=== PATIENT | female | born 1930 | race Caucasian/White ===

== ENCOUNTER 2017-01-19 10:55 | Emergency (ER) | payer OTHER ==
[2017-01-19 10:56] VITALS: BMI 29.2
[2017-01-19 11:04] VITALS: RESP 18
--- NOTE | 2017-01-19 11:54 | C.PDOC ---
History Of Present Illness Patient is a 86 y/o female, with PMHx of COPD, that presents to the ED for evaluation of right lower back pain that radiates down to right leg for the last 3 days. Notes crampy thigh pain for last 3 days. Patient also complains of upper back pain worse on left side. Additionally, patient reports occasional shortness of breath for the last 2 months. Otherwise, denies any current shortness of breath, chest pain, dizziness, numbness, weakness, nausea, vomiting , abdominal pain, or any other associated symptoms at this time. Time Seen by Provider: 01/19/17 11:19 Chief Complaint (Nursing): Back Pain History Per: Patient History/Exam Limitations: no limitations Onset/Duration Of Symptoms: Days Current Symptoms Are (Timing): Still Present Recent travel outside of the [place]: No Additional History Per: Patient Past Medical History Reviewed: Historical Data, Nursing Documentation, Vital Signs Vital Signs: Last Vital Signs Temp 97.6 F 01/19/17 13:44 Pulse 75 01/19/17 13:44 Resp 18 01/19/17 13:44 BP 120/74 01/19/17 13:44 Pulse Ox 97 01/19/17 14:04 - Medical History PMH: HTN Denies: Chronic Kidney Disease Surgical History: Cholecystectomy Family History: States: Unknown Family Hx - Social History Hx Tobacco Use: No Hx Alcohol Use: No Hx Substance Use: No - Immunization History Hx Tetanus Toxoid Vaccination: No Hx Influenza Vaccination: No Hx Pneumococcal Vaccination: No Review Of Systems Except As Marked, All Systems Reviewed And Found Negative. Constitutional: Negative for: Fever, Chills Cardiovascular: Negative for: Chest Pain, Palpitations Respiratory: Negative for: Cough, Shortness of Breath Gastrointestinal: Negative for: Nausea, Vomiting, Abdominal Pain Genitourinary: Negative for: Dysuria, Incontinence Musculoskeletal: Positive for: Back Pain, Leg Pain. Negative for: Neck Pain Neurological: Negative for: Weakness, Numbness, Headache, Dizziness Physical Exam - Physical Exam Appears: Non-toxic, No Acute Distress Skin: Normal Color, Warm, Dry, No Other (no erythema to lower extremity) Head: Atraumatic, Normacephalic Eye(s): bilateral: Normal Inspection, EOMI Neck: Normal ROM, Supple Chest: Symmetrical, No Tenderness Cardiovascular: Rhythm Regular Respiratory: Normal Breath Sounds, No Rales, No Rhonchi, No Wheezing Gastrointestinal/Abdominal: Soft, No Tenderness Back: No CVA Tenderness, No Vertebral Tenderness, Paraspinal Tenderness ( tenderness to trapezius), Other (kyphosis) Extremity: Normal ROM, No Tenderness (no tenderness to hips or lower extremities ), No Pedal Edema, No Calf Tenderness, Capillary Refill (< 2 sec.), No Deformity , No Swelling Pulses: Left Dorsalis Pedis: Normal, Right Dorsalis Pedis: Normal Neurological/Psych: Oriented x3, Normal Speech, Normal Cognition, Normal Motor, Normal Sensation ED Course And Treatment - Laboratory Results Result Diagrams: 01/19/17 12:23 01/19/17 12:23 Lab Interpretation: No Acute Changes ECG: Interpreted By Me, Viewed By Me ECG Rhythm: Sinus Rhythm ECG Interpretation: No Acute Changes Rate From EC (bpm) O2 Sat by Pulse Oximetry: 97 (on RA) Pulse Ox Interpretation: Normal - Radiology CXR: Interpreted by Me, Viewed By Me CXR Interpretation: Yes: No Acute Disease Progress Note: Labs, EKG, CXR ordered and reviewed. Patient was treated with IV fluids, and Toradol IVP in the ER. On reassessment, patient is resting comfortably, with no acute distress. She has no fever and stable vital signs. She reports improvemet of back pain. Patient is ambulatory in the emergency department with no signs of discomfort. Patient was advised to follow up with their physician in 1-2 days. Medical Decision Making Medical Decision Making: EKg Disposition Counseled Patient/Family Regarding: Need For Followup, Rx Given - Disposition Referrals: [facility] [Outside] [facility] [Outside] Disposition: HOME/ ROUTINE Disposition Time: 13:25 Condition: STABLE Additional Instructions: Vaya a james mdico o la clnica en 2-5 wilde sin falta, para mas evaluacin. [place] los medicamentos jluis indicado. Volver a la levi de emergencia en cualquier momento si los sntomas persisten o empeoran. Prescriptions: Ibuprofen [Motrin] 600 mg PO Q8 #30 tab Instructions: Back Pain (GEN) Print Language: ESTONIAN - POA Present On Arrival: None - Clinical Impression Clinical Impression: Low back pain, Thoracic back pain - PA / BICYCLE RACER / Resident Statement MD/DO has reviewed & agrees with the documentation as recorded. - Scribe Statement The provider has reviewed the documentation as recorded by the Scribe Shaneka Nath All medical record entries made by the Herbertibe were at my direction and personally dictated by me. I have reviewed the chart and agree that the record accurately reflects my personal performance of the history, physical exam, medical decision making, and the department course for this patient. I have also personally directed, reviewed, and agree with the discharge instructions and disposition.
[2017-01-19] MEDS ORDERED: Sodium Chloride 0.9% 1,000 ML IV ONE (11:55)
[2017-01-19] MEDS ORDERED: Sodium Chloride 0.9% 1,000 ML ONE (12:06)
[2017-01-19 12:27] LABS: EOS # 0.1 K/uL (0.0-0.7); HEMATOCRIT 40.2 % (34.0-47.0); LYMPH # 1.9 K/uL (1.0-4.3); LYMPH % 38.4 % (20.0-40.0); MEAN CORPUSCULAR HEMOGLOBIN 29.3 pg (27.0-31.0); MEAN CORPUSCULAR HGB CONC 32.9 g/dL (33.0-37.0); MEAN PLATELET VOLUME 9.6 fL (7.2-11.7); MONO # 0.3 K/uL (0.0-0.8); MONO % 5.9 % (0.0-10.0); NRBC % 0.1 % (0.0-2.0); RED CELL DISTRIBUTION WIDTH 13.5 % (11.5-14.5); WHITE BLOOD COUNT 4.9 K/uL (4.8-10.8)
[2017-01-19 12:32] LABS: MEAN CELL VOLUME 88.9 fL (81.0-99.0)
[2017-01-19 12:37] LABS: CHLORIDE 103 mmol/L (98-107); POTASSIUM 4.1 mmol/L (3.6-5.2); SODIUM 140 mmol/L (132-148)
[2017-01-19 12:39] LABS: BILIRUBIN,TOTAL 0.5 mg/dL (0.2-1.3); GFR AFRICAN-AMERICAN > 60
[2017-01-19 12:40] LABS: ALB/GLOB RATIO 1.1 (1.0-2.1); ALKALINE PHOSPHATASE 41 U/L (38-126); ALT/SGPT 51 U/L (9-52); AST/SGOT 32 U/L (14-36); BLOOD UREA NITROGEN 19 mg/dL (7-17); CALCIUM 8.5 mg/dl (8.6-10.4); CARBON DIOXIDE 26 mmol/L (22-30); GLUCOSE,RANDOM 92 mg/dL (65-105); TOTAL PROTEIN 7.2 g/dL (6.3-8.3)
[2017-01-19 13:45] VITALS: BP 120/74; PULSE 75; TEMP 97.6
[2017-01-19 13:50] VITALS: O2SAT 97
--- NOTE | 2017-01-19 15:22 | RAD ---
HISTORY: chest pain COMPARISON: Comparison chest 03/13/2016 kidney march TECHNIQUE: Chest PA and lateral FINDINGS: LUNGS: Re- demonstrated is a calcified granuloma left lateral lower lung field unchanged. PLEURA: No significant pleural effusion identified. No pneumothorax apparent. CARDIOVASCULAR: Normal. OSSEOUS STRUCTURES: No significant abnormalities. VISUALIZED UPPER ABDOMEN: Normal. OTHER FINDINGS: None. IMPRESSION: No acute consolidation. Re- demonstrated is a calcified granuloma left lateral lower lung field
--- NOTE | 2017-01-20 22:19 | CARD ---
APPROVED REPORT EKG Measurement Heart [id number] NM 170P60 [id number] <Conclusion> Normal sinus rhythm Low voltage QRS Nonspecific ST abnormality Abnormal ECG
== END 2017-01-19 13:44 | disposition home or self-care (01) ==
LOC: C.ER 10:55
DX: M54.5 Low back pain (principal); M54.6 Pain in thoracic spine

== ENCOUNTER 2017-03-04 17:56 | Emergency (ER) | payer OTHER ==
[2017-03-04 17:56] VITALS: BMI 29.2
[2017-03-04] MEDS ORDERED: Sodium Chloride 0.9% 1,000 ML IV ONE (19:35)
[2017-03-04] MEDS ORDERED: Albuterol 0.042% Inhal Sol (1.25 mg/3 mL) UD IH STA (19:35)
--- NOTE | 2017-03-04 19:39 | C.PDOC ---
History Of Present Illness 86 y/o female presents to ED with complaints of SOB and cough for few days. Patient also reports chest pain on breathing and cough. Denies fever or chills. Notes cough productive of yellow sputum and that shortness of breath has been occasional. Denies palpitations, abdominal pain, or other associated symptoms. Chief Complaint (Nursing): Cough, Cold, Congestion History Per: Patient History/Exam Limitations: no limitations Current Symptoms Are (Timing): Still Present Recent travel outside of the [place]: No Past Medical History Reviewed: Historical Data, Nursing Documentation, Vital Signs Vital Signs: Last Vital Signs Temp 98.5 F 03/04/17 18:10 Pulse 66 03/04/17 18:10 Resp 18 03/04/17 18:10 BP 139/77 03/04/17 18:10 Pulse Ox 96 03/04/17 20:13 - Medical History PMH: HTN Surgical History: Cholecystectomy Family History: States: Unknown Family Hx - Social History Hx Tobacco Use: No Hx Alcohol Use: No Hx Substance Use: No - Immunization History Hx Tetanus Toxoid Vaccination: No Hx Influenza Vaccination: No Hx Pneumococcal Vaccination: No Review Of Systems Except As Marked, All Systems Reviewed And Found Negative. Constitutional: Negative for: Fever, Chills Cardiovascular: Negative for: Palpitations Respiratory: Positive for: Cough, Shortness of Breath, Sputum Gastrointestinal: Negative for: Nausea, Vomiting, Abdominal Pain, Diarrhea Skin: Negative for: Rash Neurological: Negative for: Headache, Dizziness Physical Exam - Physical Exam Appears: Non-toxic, No Acute Distress Skin: Warm, Dry Head: Atraumatic, Normacephalic Oral Mucosa: Moist Chest: Symmetrical Cardiovascular: Rhythm Regular Respiratory: No Accessory Muscle Use, No Rales, Rhonchi (expiratory, bilaterally ), No Stridor, No Wheezing Gastrointestinal/Abdominal: Soft, No Tenderness Back: Normal Inspection Extremity: Normal ROM, Capillary Refill (< 2 sec. ) Neurological/Psych: Oriented x3 ED Course And Treatment - Laboratory Results Result Diagrams: 03/04/17 19:50 03/04/17 19:50 ECG: Interpreted By Me, Viewed By Me ECG Rhythm: Sinus Rhythm ECG Interpretation: Normal, No Acute Changes Interpretation Of ECG: NSR, normal tracings. Rate From EC O2 Sat by Pulse Oximetry: 96 (ra) Pulse Ox Interpretation: Normal - Radiology CXR: Interpreted by Me, Viewed By Me CXR Interpretation: Yes: No Acute Disease. No: Infiltrates, Cardiomegaly Disposition Counseled Patient/Family Regarding: Diagnosis - Disposition Referrals: [facility] [Outside] Disposition: HOME/ ROUTINE Disposition Time: 20:14 Condition: STABLE Prescriptions: Albuterol HFA [Ventolin HFA 90 mcg/actuation (8 g)] 1 puff IH Q6 #1 inhaler Azithromycin [Zithromax] 500 mg PO DAILY #7 tablet Naproxen [Naprosyn Tab] 375 mg PO TIDPC #14 tab Promethazine DM [Phenergan DM Syrup] 5 ml PO TID #20 cup Instructions: Upper Respiratory Infection (ED), Acute Bronchitis (ED) Forms: Gen Discharge Inst Serbian Print Language: CAPE VERDEAN - POA Present On Arrival: None - Clinical Impression Clinical Impression: Bronchitis, Upper respiratory infection - Scribe Statement The provider has reviewed the documentation as recorded by the Yvette Venegas Provider Scribe Attestation: All medical record entries made by the Herbertibchery were at my direction and personally dictated by me. I have reviewed the chart and agree that the record accurately reflects my personal performance of the history, physical exam, medical decision making, and the department course for this patient. I have also personally directed, reviewed, and agree with the discharge instructions and disposition.
[2017-03-04] MEDS ORDERED: Albuterol 0.083% Inhal Sol (2.5 mg/3 mL) UD ONE (19:49)
[2017-03-04] MEDS ORDERED: Sodium Chloride 0.9% 1,000 ML ONE (19:51)
[2017-03-04 19:55] LABS: BASO % 0.5 % (0.0-2.0); EOS # 0.2 K/uL (0.0-0.7); EOS % 3.4 % (0.0-4.0); HEMATOCRIT 39.2 % (34.0-47.0); LYMPH # 1.8 K/uL (1.0-4.3); LYMPH % 36.5 % (20.0-40.0); MEAN CORPUSCULAR HEMOGLOBIN 29.2 pg (27.0-31.0); MEAN CORPUSCULAR HGB CONC 32.4 g/dL (33.0-37.0); MEAN PLATELET VOLUME 9.8 fL (7.2-11.7); MONO # 0.4 K/uL (0.0-0.8); MONO % 7.9 % (0.0-10.0); WHITE BLOOD COUNT 4.8 K/uL (4.8-10.8)
[2017-03-04 20:02] LABS: CHLORIDE 105 mmol/L (98-107); SODIUM 139 mmol/L (132-148)
[2017-03-04 20:03] LABS: POTASSIUM 4.3 mmol/L (3.6-5.2)
[2017-03-04 20:05] LABS: ALB/GLOB RATIO 1.3 (1.0-2.1); ALKALINE PHOSPHATASE 41 U/L (38-126); ALT/SGPT 28 U/L (9-52); AST/SGOT 28 U/L (14-36); BILIRUBIN,TOTAL 0.6 mg/dL (0.2-1.3); BLOOD UREA NITROGEN 23 mg/dL (7-17); CALCIUM 8.6 mg/dl (8.6-10.4); CARBON DIOXIDE 24 mmol/L (22-30); GFR AFRICAN-AMERICAN > 60; GLUCOSE,RANDOM 92 mg/dL (65-105); TOTAL PROTEIN 7.2 g/dL (6.3-8.3)
[2017-03-04 21:01] VITALS: BP 121/69; PULSE 78; RESP 20; TEMP 98.1; O2SAT 99
--- NOTE | 2017-03-05 09:39 | RAD ---
HISTORY: Shortness of breath COMPARISON: 01/19/2017 TECHNIQUE: Chest PA and lateral FINDINGS: LUNGS: Biapical pleural thickening with upper lobe granulomatous changes. Two small nodular densities at the lateral aspect of the left lung base measuring up to 6 and 4 millimeters respectively. These were noted on the prior study. Correlation with chest CT may be helpful. No focal infiltrate or effusion. PLEURA: No significant pleural effusion identified. No pneumothorax apparent. CARDIOVASCULAR: Calcification at the aortic knob. OSSEOUS STRUCTURES: No significant abnormalities. VISUALIZED UPPER ABDOMEN: Normal. OTHER FINDINGS: None. IMPRESSION: Biapical pleural thickening with upper lobe granulomatous changes. Two small nodular densities at the lateral aspect of the left lung base measuring up to 6 and 4 millimeters respectively. These were noted on the prior study. Correlation with chest CT may be helpful. No focal infiltrate or effusion.
--- NOTE | 2017-03-06 12:09 | CARD ---
APPROVED REPORT EKG Measurement Heart [id number] MI 166P63 [id number] <Conclusion> Normal sinus rhythm Normal ECG
== END 2017-03-04 21:01 | disposition home or self-care (01) ==
LOC: C.ER 17:56 → EDBD 17:56 → C.ER 21:01
DX: J06.9 Acute upper respiratory infection, unspecified (principal); J20.9 Acute bronchitis, unspecified
CPT/HCPCS: 71020; 80053; 83880; 84484; 85025; 85378; 87804; 93005; 94640; 96360; 99284; J7040

== ENCOUNTER 2018-01-20 08:48 | Emergency (ER) | payer OTHER ==
[2018-01-20 08:48] VITALS: BMI 29.5
[2018-01-20 09:02] VITALS: BP 122/72; PULSE 86; RESP 18; TEMP 99.3; O2SAT 98
--- NOTE | 2018-01-20 09:30 | RAD ---
HISTORY: cough COMPARISON: 03/04/2017 TECHNIQUE: Chest PA and lateral FINDINGS: LUNGS: No pulmonary infiltrate. Calcified granuloma at left lung, unchanged. PLEURA: No significant pleural effusion identified. No pneumothorax apparent. CARDIOVASCULAR: Normal. OSSEOUS STRUCTURES: No significant abnormalities. VISUALIZED UPPER ABDOMEN: Normal. OTHER FINDINGS: None. IMPRESSION: No active disease.
--- NOTE | 2018-01-20 09:40 | C.PDOC ---
History Of Present Illness 87 year old female presents to the ER with a complaint of a dry cough for the past 2 weeks, associated with occasional pleuritic pain. Patient has not seen her PMD for her symptoms. Denies Hx of COPD, asthma, smoking, fever, dyspnea on exertion, SOB, or other associated symptoms. DRY COUGH X 2 WEEKS. NO FEVER, CARTAGENA, SOB. OCC PLEURITIC PAIN. DENIES OTHER ASSOC SX. DID NOT SEE PMD FOR SAME. DENIES HO COPD, ASTHMA SMOKING EXAM NARD NONTOXIC LUNGS OCC DRY COUGH CTA B/L NO W/R/R REMAINDER NEG Time Seen by Provider: 01/20/18 09:01 Chief Complaint (Nursing): Cough, Cold, Congestion History Per: Patient History/Exam Limitations: no limitations Onset/Duration Of Symptoms: Days Current Symptoms Are (Timing): Still Present Location Of Pain: None Sick Contacts (Context): None Associated Symptoms: Cough, Other ((+) Occasional pleuritic pain. (-) CARTAGENA, SOB) . denies: Fever, Sputum Ear Symptoms: Bilateral: None Recent travel outside of the [place]: No Past Medical History Reviewed: Historical Data, Nursing Documentation, Vital Signs Vital Signs: Last Vital Signs Temp 99.3 F 01/20/18 08:56 Pulse 86 01/20/18 08:56 Resp 18 01/20/18 08:56 BP 122/72 01/20/18 08:56 Pulse Ox 98 01/20/18 09:39 - Medical History PMH: HTN Surgical History: Cholecystectomy Family History: States: Unknown Family Hx - Social History Hx Tobacco Use: No Hx Alcohol Use: No Hx Substance Use: No - Immunization History Hx Tetanus Toxoid Vaccination: No Hx Influenza Vaccination: No Hx Pneumococcal Vaccination: No Review Of Systems Except As Marked, All Systems Reviewed And Found Negative. Constitutional: Negative for: Fever Respiratory: Positive for: Cough, Pleuritic Pain (Occasional). Negative for: Shortness of Breath, SOB with Excertion, Sputum Physical Exam - Physical Exam Appears: Non-toxic, Other (No acute respiratory distress) Skin: Normal Color, Warm, Dry Head: Atraumatic, Normacephalic Eye(s): bilateral: Normal Inspection Oral Mucosa: Moist Throat: Normal, No Erythema, No Exudate Chest: Symmetrical, No Tenderness Cardiovascular: Rhythm Regular Respiratory: No Rales, No Rhonchi, No Wheezing, Other (Occasional dry cough) Neurological/Psych: Oriented x3, Normal Speech ED Course And Treatment O2 Sat by Pulse Oximetry: 98 Pulse Ox Interpretation: Normal - Radiology CXR: Interpreted by Me CXR Interpretation: Yes: No Acute Disease Medical Decision Making Medical Decision Making: Plan: * CXR Disposition Counseled Patient/Family Regarding: Studies Performed, Diagnosis, Need For Followup, Rx Given - Disposition Referrals: YOUR,PMD [Other] Disposition: HOME/ ROUTINE Disposition Time: 09:39 Condition: GOOD Prescriptions: Azithromycin 250 mg PO DAILY #6 tab Benzonatate [Tessalon Perles] 200 mg PO TID PRN #15 sgl PRN Reason: Cough Instructions: Acute Bronchitis Forms: [employer] (Chinese) Print Language: GREEK - Clinical Impression Clinical Impression: Bronchitis - Scribe Statement The provider has reviewed the documentation as recorded by the Herbertibchery Silvestre All medical record entries made by the Herbertibchery were at my direction and personally dictated by me. I have reviewed the chart and agree that the record accurately reflects my personal performance of the history, physical exam, medical decision making, and the department course for this patient. I have also personally directed, reviewed, and agree with the discharge instructions and disposition.
== END 2018-01-20 09:51 | disposition home or self-care (01) ==
LOC: C.ER 08:48
DX: J40 Bronchitis, not specified as acute or chronic (principal)

== ENCOUNTER 2018-02-07 18:02 | Emergency (ER) | payer OTHER ==
[2018-02-07 18:02] VITALS: BMI 29.5
[2018-02-07 18:15] VITALS: RESP 20
--- NOTE | 2018-02-07 18:55 | C.PDOC ---
History Of Present Illness 87 year old female presents to the ED for evaluation of cough and cold symptoms for 4 days. Patient reports her cough is productive of white sputum and she has anterior chest wall pain while coughing. Patient denies fever, chills. Chief Complaint (Nursing): Flu-like Symptoms History Per: Patient History/Exam Limitations: no limitations Onset/Duration Of Symptoms: Days (4) Current Symptoms Are (Timing): Still Present Associated Symptoms: Cough, Sputum (white). denies: Fever Additional History Per: Patient Past Medical History Reviewed: Historical Data, Nursing Documentation, Vital Signs Vital Signs: Last Vital Signs Temp 98.7 F 02/07/18 19:47 Pulse 103 H 02/07/18 19:47 Resp 20 02/07/18 19:47 BP 127/55 L 02/07/18 19:47 Pulse Ox 97 02/07/18 19:50 - Medical History PMH: HTN Denies: Chronic Kidney Disease Surgical History: Cholecystectomy Family History: States: Unknown Family Hx - Social History Hx Tobacco Use: No Hx Alcohol Use: No Hx Substance Use: No - Immunization History Hx Tetanus Toxoid Vaccination: No Hx Influenza Vaccination: Yes (2017) Hx Pneumococcal Vaccination: No Review Of Systems Constitutional: Negative for: Fever, Chills Cardiovascular: Positive for: Other (anterior chest wall pain while coughing) Respiratory: Positive for: Cough, Sputum (white) Physical Exam - Physical Exam Appears: Non-toxic, No Acute Distress Skin: Normal Color, Warm, Dry Head: Atraumatic, Normacephalic Eye(s): bilateral: Normal Inspection Oral Mucosa: Moist Neck: Supple Chest: Symmetrical, No Deformity, No Tenderness Cardiovascular: Rhythm Regular, No Murmur Respiratory: Normal Breath Sounds, No Rales, No Rhonchi, No Wheezing Extremity: Normal ROM, Capillary Refill (less than 2 seconds ) Neurological/Psych: Oriented x3, Normal Speech, Normal Cognition ED Course And Treatment - Laboratory Results Result Diagrams: 02/07/18 19:06 02/07/18 19:06 ECG: Interpreted By Me, Viewed By Me ECG Rhythm: Sinus Rhythm ECG Interpretation: Normal, No Acute Changes Interpretation Of ECG: NSR, normal tracings Rate From EC O2 Sat by Pulse Oximetry: 97 (on RA) Pulse Ox Interpretation: Normal - Radiology CXR: Interpreted by Me, Viewed By Me CXR Interpretation: Yes: No Acute Disease. No: Infiltrates, Cardiomegaly Progress Note: Bloodwork, CXR, EKG, Influenza A/B swab ordered and reviewed. Disposition Counseled Patient/Family Regarding: Diagnosis - Disposition Referrals: [facility] [Outside] Disposition: HOME/ ROUTINE Disposition Time: 19:46 Condition: STABLE Prescriptions: Azithromycin 1 tab PO DAILY #4 tab guaiFENesin/Dextromethorphan [guaiFENesin-DM] 5 ml PO TID #120 ml Instructions: Acute Bronchitis, Adult (DC), Upper Respiratory Infection (ED) Forms: [employer] (Norwegian), Gen Discharge Inst Greek Print Language: IRANIAN - Clinical Impression Clinical Impression: Upper respiratory infection, Bronchitis - Scribe Statement The provider has reviewed the documentation as recorded by the Scribe (Ernestine Nath) Provider Attestation: All medical record entries made by the Scribe were at my direction and personally dictated by me. I have reviewed the chart and agree that the record accurately reflects my personal performance of the history, physical exam, medical decision making, and the department course for this patient. I have also personally directed, reviewed, and agree with the discharge instructions and disposition.
[2018-02-07 19:11] LABS: BASO # 0.1 K/uL (0.0-0.2); BASO % 1.9 % (0.0-2.0); EOS # 0.3 K/uL (0.0-0.7); EOS % 9.5 % (0.0-4.0); HEMOGLOBIN 13.2 g/dL (11.0-16.0); LYMPH # 0.9 K/uL (1.0-4.3); LYMPH % 25.7 % (20.0-40.0); MEAN CORPUSCULAR HEMOGLOBIN 29.8 pg (27.0-31.0); MEAN CORPUSCULAR HGB CONC 33.2 g/dL (33.0-37.0); MEAN PLATELET VOLUME 9.3 fL (7.2-11.7); MONO # 0.2 K/uL (0.0-0.8); MONO % 7.1 % (0.0-10.0); NEUT # 1.9 K/uL (1.8-7.0); NEUT % 55.8 % (50.0-75.0); NRBC % 0.1 % (0.0-2.0); RBC 4.42 Mil/uL (3.80-5.20); WHITE BLOOD COUNT 3.3 K/uL (4.8-10.8)
[2018-02-07 19:48] VITALS: BP 127/55; PULSE 103; TEMP 98.7
[2018-02-07 19:50] VITALS: O2SAT 97
[2018-02-07 19:59] LABS: ALB/GLOB RATIO 1.1 (1.0-2.1); ALT/SGPT 14 U/L (9-52); AST/SGOT 30 U/L (14-36); BLOOD UREA NITROGEN 20 mg/dL (7-17); GFR AFRICAN-AMERICAN > 60; GFR NON-AFRICAN AMERICAN > 60
[2018-02-07 20:15] LABS: B-TYPE NATRIURETIC PEPTIDE 390 pg/mL (0-900)
--- NOTE | 2018-02-08 06:55 | RAD ---
Chest x-ray two views History: Chest pain. Comparison: 01/20/2018 Findings: Biapical pleural thickening with upper lobe granulomatous changes. Small nodule and or granuloma at lateral aspect of the left klever lung base. Focal consolidative changes seen in the infrahilar regions bilaterally ; right greater than left. Clinical correlation. Calcification at the aortic knob. Degenerative changes in the spine and shoulders. Impression: Biapical pleural thickening with upper lobe granulomatous changes. Small nodule and or granuloma at lateral aspect of the left lung base. Focal consolidative changes seen in the infrahilar regions bilaterally ; right greater than left. Clinical correlation. Calcification at the aortic knob. Degenerative changes in the spine and shoulders. Followup exam would be helpful to confirm stability of the nodule and infrahilar consolidative regions. Clinical correlation.
--- NOTE | 2018-02-10 17:08 | CARD ---
APPROVED REPORT EKG Measurement Heart [id number] [place] 132P48 [id number] <Conclusion> Normal sinus rhythm Low voltage QRS Borderline ECG
== END 2018-02-07 20:11 | disposition home or self-care (01) ==
LOC: C.ER 18:02
DX: J40 Bronchitis, not specified as acute or chronic (principal); J06.9 Acute upper respiratory infection, unspecified; I10 Essential (primary) hypertension

== ENCOUNTER 2018-02-10 15:23 | Observation (INO) | payer OTHER ==
[2018-02-10 15:23] VITALS: BMI 29.5
[2018-02-10] MEDS ORDERED: Albuterol 0.083% Inhal Sol (2.5 mg/3 mL) UD IH STA (17:23)
[2018-02-10 17:41] LABS: BASO % 0.2 % (0.0-2.0); EOS % 0.4 % (0.0-4.0); HEMOGLOBIN 13.4 g/dL (11.0-16.0); LYMPH # 1.6 K/uL (1.0-4.3); LYMPH % 25.1 % (20.0-40.0); MEAN CELL VOLUME 89.9 fL (81.0-99.0); MEAN CORPUSCULAR HEMOGLOBIN 29.8 pg (27.0-31.0); MEAN CORPUSCULAR HGB CONC 33.1 g/dL (33.0-37.0); MEAN PLATELET VOLUME 9.4 fL (7.2-11.7); MONO # 0.5 K/uL (0.0-0.8); MONO % 7.6 % (0.0-10.0); NEUT # 4.1 K/uL (1.8-7.0); NEUT % 66.7 % (50.0-75.0); NRBC % 0.1 % (0.0-2.0); RBC 4.5 Mil/uL (3.80-5.20); RED CELL DISTRIBUTION WIDTH 13.9 % (11.5-14.5)
[2018-02-10] MEDS ORDERED: Albuterol 0.083% Inhal Sol (2.5 mg/3 mL) UD ONE (17:42)
[2018-02-10 17:43] LABS: WHITE BLOOD COUNT 6.2 K/uL (4.8-10.8)
--- NOTE | 2018-02-10 17:49 | C.PDOC ---
History Of Present Illness 87 y/o female with history of Pulmonary fibrosis presents to ED with complaints of persistent cough for 1 month. Notes she has chest pain and sob with persistent cough. Patient has been seen at ED twice for same symptoms, prescribed azithromycin without improvement. As per family at bedside patient has similar episodes in 2016 where she was admitted for pneumonia. Denies fever , abdominal pain, nausea, leg swelling or any other complaints at this time. Time Seen by Provider: 02/10/18 17:12 Chief Complaint (Nursing): Cough, Cold, Congestion History Per: Patient, Family History/Exam Limitations: no limitations Onset/Duration Of Symptoms: Days Current Symptoms Are (Timing): Still Present Associated Symptoms: Cough Past Medical History Reviewed: Historical Data, Nursing Documentation, Vital Signs Vital Signs: Last Vital Signs Temp 97.7 F 02/11/18 07:40 Pulse 75 02/11/18 07:40 Resp 20 02/11/18 07:40 BP 120/69 02/11/18 07:40 Pulse Ox 95 02/11/18 07:40 - Medical History PMH: HTN Surgical History: Cholecystectomy Family History: States: No Known Family Hx - Social History Hx Tobacco Use: No Hx Alcohol Use: No Hx Substance Use: No - Immunization History Hx Tetanus Toxoid Vaccination: No Hx Influenza Vaccination: Yes (2017) Hx Pneumococcal Vaccination: No Review Of Systems Constitutional: Negative for: Fever, Chills Cardiovascular: Positive for: Chest Pain Respiratory: Positive for: Cough. Negative for: Shortness of Breath Gastrointestinal: Negative for: Nausea, Vomiting Skin: Negative for: Rash Physical Exam - Physical Exam Appears: Non-toxic, No Acute Distress Skin: Normal Color, Warm, Dry, No Rash Head: Atraumatic, Normacephalic Eye(s): bilateral: Normal Inspection, PERRL, EOMI Nose: Normal Oral Mucosa: Moist Throat: Normal, No Erythema, No Exudate Neck: Normal ROM, Supple Chest: Symmetrical Cardiovascular: Rhythm Regular Respiratory: Normal Breath Sounds, No Rales, No Rhonchi, No Wheezing Gastrointestinal/Abdominal: Soft, No Tenderness, No Guarding, No Rebound Extremity: Normal ROM, Capillary Refill (<2 seconds) Neurological/Psych: Oriented x3, Normal Speech ED Course And Treatment - Laboratory Results Result Diagrams: 02/11/18 07:38 02/11/18 07:38 ECG: Interpreted By Me, Viewed By Me ECG Rhythm: Sinus Rhythm Interpretation Of ECG: Normal Sinus Rhythm at rate 69 bpm. Rate From EC O2 Sat by Pulse Oximetry: 96 (RA) Pulse Ox Interpretation: Normal Progress Note: Blood work, ECG ordered. Albuterol, Neb treatment administered. On re-evaluation, pt notes mild improvement. Case discussed with Dr Arevalo, agreed upon plan and treatment. Case discussed with Dr Capellan, agreed upon admission. Disposition - Disposition Disposition: HOSPITALIZED Disposition Time: 18:00 Condition: STABLE - Clinical Impression Clinical Impression: Pneumonia, Chest pain, Bronchitis - PA / TILE SETTER / Resident Statement MD/DO has reviewed & agrees with the documentation as recorded. - Scribe Statement The provider has reviewed the documentation as recorded by the Herbertibchery Duron All medical record entries made by the Yvette were at my direction and personally dictated by me. I have reviewed the chart and agree that the record accurately reflects my personal performance of the history, physical exam, medical decision making, and the department course for this patient. I have also personally directed, reviewed, and agree with the discharge instructions and disposition.
[2018-02-10 17:54] LABS: ALBUMIN 4.1 g/dL (3.5-5.0); ALT/SGPT 24 U/L (9-52); AST/SGOT 23 U/L (14-36); BLOOD UREA NITROGEN 21 mg/dL (7-17); CALCIUM 8.9 mg/dl (8.6-10.4); GFR AFRICAN-AMERICAN > 60; GFR NON-AFRICAN AMERICAN > 60
--- NOTE | 2018-02-10 17:56 | RAD ---
HISTORY: SOB COMPARISON: 02/07/2018 TECHNIQUE: Chest PA and lateral FINDINGS: LUNGS: No active pulmonary disease. PLEURA: No significant pleural effusion identified. No pneumothorax apparent. CARDIOVASCULAR: No radiographic findings to suggest acute or significant cardiovascular disease. OSSEOUS STRUCTURES: No significant abnormalities. VISUALIZED UPPER ABDOMEN: Normal. OTHER FINDINGS: None. IMPRESSION: No active disease. No significant interval change compared to the prior examination(s).
[2018-02-10 18:07] LABS: B-TYPE NATRIURETIC PEPTIDE 193 pg/mL (0-900); CK-MB 1.81 ng/mL (0.0-3.38)
[2018-02-10] MEDS ORDERED: Moxifloxacin IV 400mg/250ml NS 400 MG/250 ML BAG IV STA (18:14)
[2018-02-10] MEDS ORDERED: Azithromycin 500mg/250ML NS 500 MG/250 ML BAG IV STA (18:14)
--- NOTE | 2018-02-10 19:15 | CP.PCM.HP ---
History of Present Illness - History of Present Illness History of Present Illness: 87 year old female with past medical history of pulmonary fibrosis presented to hospital for 1 month of productive cough. Patient is accompanied with daughter who helps translate. Patient had productive cough with chest congestion for past month. Patient was seen in ED for these symptoms last week (02/07/18) and was given Zithromax which did not help her symptoms. CXR done on 02/07/18 was negative for acute disease. Patient also had Patient denies having any chest pain, shortness of breath, fevers, chills. PMD: Dr. Gupta PMH: Pulmonary Fibrosis (unknown origin) PSH: cholecystectomy, cataracts surgery Allergies: Penicillin Home Meds: denies FHX: mother and sister had breast CA Social: denies hx of tobacco, etoh and drug use. Present on Admission - Present on Admission Any Indicators Present on Admission: No Review of Systems - Constitutional Constitutional: absent: Chills, Fever - EENT Eyes: absent: Change in Vision, Itchy Eyes Ears: absent: Decreased Hearing, Ear Pain Nose/Mouth/Throat: absent: Nasal Discharge, Sinus Pain, Sore Throat - Cardiovascular Cardiovascular: absent: Chest Pain, Dyspnea, Leg Edema - Respiratory Respiratory: Cough, Wheezing, Chest Congestion. absent: Dyspnea - Gastrointestinal Gastrointestinal: absent: Abdominal Pain, Constipation, Diarrhea, Nausea, Vomiting - Genitourinary Genitourinary: absent: Dysuria, Urinary Frequency - Musculoskeletal Musculoskeletal: absent: Back Pain, Muscle Weakness - Integumentary Integumentary: absent: Acne, Lesions, Rash - Neurological Neurological: absent: Dizziness, Headaches - Psychiatric Psychiatric: absent: Anxiety, Confusion, Depression - Hematologic/Lymphatic Hematologic: absent: Easy Bleeding, Easy Bruising Past Patient History - Infectious Disease Hx of Infectious Diseases: None - Past Medical History & Family History Past Medical History?: Yes - Past Social History Smoking Status: Never Smoked Chewing Tobacco Use: No Cigar Use: No Alcohol: None Drugs: Denies Home Situation {Lives}: With Family - CARDIAC Hx Hypertension: Yes - PULMONARY Other/Comment: PULMONARY FIBROSIS - NEUROLOGICAL Hx Neurological Disorder: No - HEENT Hx HEENT Problems: No - RENAL Hx Chronic Kidney Disease: No - ENDOCRINE/METABOLIC Hx Endocrine Disorders: No - HEMATOLOGICAL/ONCOLOGICAL Hx Blood Disorders: No - INTEGUMENTARY Hx Dermatological Problems: No - MUSCULOSKELETAL/RHEUMATOLOGICAL Hx Musculoskeletal Disorders: No Hx Falls: No (DENIES) - GASTROINTESTINAL Hx Gastrointestinal Disorders: No - GENITOURINARY/GYNECOLOGICAL Hx Genitourinary Disorders: No - PSYCHIATRIC Hx Substance Use: No - SURGICAL HISTORY Hx Cholecystectomy: Yes - ANESTHESIA Hx Anesthesia: Yes Hx Anesthesia Reactions: No Hx Malignant Hyperthermia: No Meds Allergies/Adverse Reactions: Allergies Allergy/AdvReac Type Severity Reaction Status Date / Time Penicillins AdvReac Severe ANAPHYLAXIS Verified 02/07/18 18:15 Physical Exam - Constitutional Appears: Non-toxic, No Acute Distress - Head Exam Head Exam: ATRAUMATIC - Eye Exam Eye Exam: EOMI - ENT Exam ENT Exam: Mucous Membranes Moist - Respiratory Exam Respiratory Exam: Wheezes (expiratory wheezing B/L ). absent: Accessory Muscle Use, Rales, Rhonchi - Cardiovascular Exam Cardiovascular Exam: REGULAR RHYTHM, +S1, +S2. absent: Diastolic murmur, Gallop , Rubs, Systolic Murmur - GI/Abdominal Exam GI & Abdominal Exam: Normal Bowel Sounds. absent: Distended, Firm, Guarding, Rigid, Soft, Tenderness - Extremities Exam Extremities exam: Negative for: pedal edema, tenderness - Neurological Exam Neurological exam: Alert, Oriented x3 - Psychiatric Exam Psychiatric exam: Normal Affect, Normal Mood - Skin Skin Exam: Dry, Intact, Normal Color, Warm Results - Vital Signs Recent Vital Signs: Last Vital Signs Temp 100.3 F H 02/10/18 16:21 Pulse 70 02/10/18 16:21 Resp 18 02/10/18 16:21 BP 123/75 02/10/18 16:21 Pulse Ox 96 02/10/18 19:05 - Labs Result Diagrams: 02/10/18 17:34 02/10/18 17:34 Labs: Laboratory Results - last 24 hr 02/10/18 02/10/18 17:34 17:34 WBC 6.2 D RBC 4.50 Hgb 13.4 Hct 40.5 MCV 89.9 MCH 29.8 MCHC 33.1 RDW 13.9 Plt Count 190 MPV 9.4 Neut % (Auto) 66.7 Lymph % (Auto) 25.1 [place] % (Auto) 7.6 Eos % (Auto) 0.4 Baso % (Auto) 0.2 Neut # (Auto) 4.1 Lymph # (Auto) 1.6 [place] # (Auto) 0.5 Eos # (Auto) 0.0 Baso # (Auto) 0.0 Sodium 143 Potassium 3.9 Chloride 101 Carbon Dioxide 29 Anion Gap 17 BUN 21 H Creatinine 0.7 Est GFR ( Amer) > 60 Est GFR (Non-Af Amer) > 60 Random Glucose 102 Calcium 8.9 Total Bilirubin 0.6 AST 23 ALT 24 Alkaline Phosphatase 49 Total Creatine Kinase 136 H CK-MB (Mass) 1.81 Troponin I < 0.0120 NT-Pro-B Natriuret Pep 193 Total Protein 8.2 Albumin 4.1 Globulin 4.0 H Albumin/Globulin Ratio 1.0 Assessment & Plan - Assessment and Plan (Free Text) Assessment: 87 year old female with past medical history of pulmonary fibrosis is admitted for bronchitis vs. suspicious pneumonia. Patient has low grade temp on admission of 100.3 degrees. No SIRS criteria met on admission though. CXR was normal and showed no evidence of active disease. Pneumonia Severity Index was 88 points meaning 0.9-2.8% mortality risk. On clinic exam though, patient has chest congestion with wheezing. Bronchitis vs. PNA -Patient received Zithromax and Avelox in the ED - Will continue Avelox 400 mg IV q24H - Will check Rapid Flu and sputum cultures. - Will check procal level - Tylenol prn for fevers - Mucinex BID for congestion - Duoneb prn Pulmonary fibrosis - Will continue to monitor. - Will recommend O/P pulm follow up Prophylaxis - SCDs - Lovenox SC Case discussed with attending, Dr. Avalos. - Date & Time Date: 02/10/18 Time: 19:24
[2018-02-10] MEDS ORDERED: Moxifloxacin IV 400mg/250ml NS 400 MG/250 ML BAG IVPB SCH (20:00)
[2018-02-10] MEDS: Albuterol-Ipratrop 3 mg / 0.5 (3 ml) UD INH SCH (20:28)
[2018-02-10] MEDS: guaiFENesin 600 mg ER Tab PO SCH (20:44)
[2018-02-11 01:05] VITALS: RESP 20
[2018-02-11] MEDS: Albuterol-Ipratrop 3 mg / 0.5 (3 ml) UD INH SCH ×6 (01:30→19:04)
[2018-02-11 07:47] LABS: BASO % 0.2 % (0.0-2.0); EOS # 0.1 K/uL (0.0-0.7); LYMPH # 1.2 K/uL (1.0-4.3); LYMPH % 21.6 % (20.0-40.0); MEAN CELL VOLUME 90.3 fL (81.0-99.0); MEAN CORPUSCULAR HGB CONC 33.2 g/dL (33.0-37.0); MEAN PLATELET VOLUME 9.7 fL (7.2-11.7); MONO # 0.5 K/uL (0.0-0.8); MONO % 8.8 % (0.0-10.0); NEUT # 3.8 K/uL (1.8-7.0); NEUT % 68.4 % (50.0-75.0); RBC 4.33 Mil/uL (3.80-5.20); WHITE BLOOD COUNT 5.5 K/uL (4.8-10.8)
[2018-02-11 08:02] LABS: ALB/GLOB RATIO 1.1 (1.0-2.1); ALBUMIN 3.6 g/dL (3.5-5.0); ALT/SGPT 18 U/L (9-52); AST/SGOT 19 U/L (14-36); BLOOD UREA NITROGEN 19 mg/dL (7-17); CALCIUM 8.5 mg/dl (8.6-10.4); GFR AFRICAN-AMERICAN > 60; GFR NON-AFRICAN AMERICAN > 60
[2018-02-11] MEDS: guaiFENesin 600 mg ER Tab PO SCH ×2 (10:32→17:44)
[2018-02-11] MEDS: Enoxaparin 30 mg Syringe SC SCH (10:33)
--- NOTE | 2018-02-11 14:14 | CP.PCM.PN ---
Subjective - Date & Time of Evaluation Date of Evaluation: 02/11/18 Time of Evaluation: 07:00 - Subjective Subjective: PGY1 Medicine Note for Dr. Avalos Patient seen and examined at bedside and in no acute distress. Patient still having productive cough with white phlegm especially at night. Patient says her breathing is better, but still feels some shortness of breath. Patient denies any chest pain, abdominal pain, nausea, vomiting, diarrhea, or constipation. Objective - Vital Signs/Intake and Output Vital Signs (last 24 hours): Temp Pulse Resp BP Pulse Ox 97.7 F 100 H 20 120/69 96 02/11/18 07:40 02/11/18 07:45 02/11/18 07:40 02/11/18 07:40 02/11/18 09:23 - Medications Medications: Current Medications Acetaminophen (Tylenol 325mg Tab) 650 mg PO Q6 PRN PRN Reason: Pain, Mild (1-3) Albuterol/Ipratropium (Duoneb 3 Mg/0.5 Mg (3 Ml) Ud) 3 ml INH RQ4 REPLACED BY [facility] Last Admin: 02/11/18 11:01 Dose: 3 ml Enoxaparin Sodium (Lovenox) 30 mg SC DAILY REPLACED BY [facility] Last Admin: 02/11/18 10:33 Dose: 30 mg Guaifenesin (Mucinex La) 600 mg PO BID REPLACED BY [facility] Last Admin: 02/11/18 10:32 Dose: 600 mg Moxifloxacin HCl (Avelox) 400 mg PO Q24H REPLACED BY [facility] Last Admin: 02/10/18 21:08 Dose: 400 mg - Labs Labs: 02/11/18 07:38 02/11/18 07:38 - Additional Findings Additional findings: - Constitutional Appears: Non-toxic, No Acute Distress - Head Exam Head Exam: ATRAUMATIC - Eye Exam Eye Exam: EOMI - ENT Exam ENT Exam: Mucous Membranes Moist - Respiratory Exam Respiratory Exam: decreased breath sounds b/l. absent: Accessory Muscle Use, Rales, Rhonchi - Cardiovascular Exam Cardiovascular Exam: REGULAR RHYTHM, +S1, +S2. absent: Diastolic murmur, Gallop , Rubs, Systolic Murmur - GI/Abdominal Exam GI & Abdominal Exam: Normal Bowel Sounds. absent: Distended, Firm, Guarding, Rigid, Soft, Tenderness - Extremities Exam Extremities exam: Negative for: pedal edema, tenderness - Neurological Exam Neurological exam: Alert, Oriented x3 - Psychiatric Exam Psychiatric exam: Normal Affect, Normal Mood - Skin Skin Exam: Dry, Intact, Normal Color, Warm Assessment and Plan - Assessment and Plan (Free Text) Assessment: Bronchitis vs. PNA -Patient received Zithromax and Avelox in the ED - Will continue Avelox 400 mg po q24H - Rapid flu negative - F/u Sputum culture - Procalc <.05 Meds: - Tylenol prn for fevers - Mucinex BID for congestion - Duoneb prn Pulmonary fibrosis - Will continue to monitor. - Will recommend O/P pulm follow up - f/u CT lung Prophylaxis - SCDs - Lovenox SC Case discussed with attending, Dr. Avalos.
--- NOTE | 2018-02-11 17:09 | CARD ---
APPROVED REPORT EKG Measurement Heart [id number] <Conclusion> Normal sinus rhythm Low voltage QRS Borderline ECG
--- NOTE | 2018-02-11 18:16 | CT ---
PROCEDURE: CT Chest without contrast HISTORY: pulm fibrosis, SOB COMPARISON: None. TECHNIQUE: Contiguous axial images were obtained through the chest without intravenous contrast enhancement. Sagittal and coronal reconstructions were performed. Radiation dose (DLP): 399.96 mGy-cm. This CT exam was performed using one or more of the following dose reduction techniques: Automated exposure control, adjustment of the mA and/or kV according to patient size, and/or use of iterative reconstruction technique. FINDINGS: LUNGS: No infiltrate. Right lower lobe linear scar/ atelectasis. Left lower lobe calcified granuloma. No other pulmonary mass. MEDIASTINUM: Unremarkable thoracic aorta. No aneurysm. Normal-sized heart. Coronary arterial calcification. No pericardial effusion. Main pulmonary artery unremarkable. No vascular congestion. No lymphadenopathy. PLEURA: No pleural fluid. No pneumothorax. BONES: No fracture. No destructive lesion. UPPER ABDOMEN: Numerous low-density masses throughout the liver, likely cysts. No biliary dilatation. Curvilinear mural calcification in some of these cysts in the anterior inferior right lobe. Very small hiatal hernia. OTHER FINDINGS: None. IMPRESSION: No evidence of pulmonary fibrosis. No acute infiltrate. Minor findings as above.
[2018-02-12] MEDS: Albuterol-Ipratrop 3 mg / 0.5 (3 ml) UD INH SCH ×4 (00:20→11:27)
--- NOTE | 2018-02-12 07:08 | CP.PCM.PN ---
Subjective - Date & Time of Evaluation Date of Evaluation: 02/12/18 Time of Evaluation: 07:00 - Subjective Subjective: PGY1 Medicine Note for Dr. Avalos Patient seen and examined at bedside and in no acute distress. Patient still having productive cough with white phlegm especially at night. Patient says her breathing is better, but still feels some shortness of breath. Patient denies any chest pain, abdominal pain, nausea, vomiting, diarrhea, or constipation. Objective - Vital Signs/Intake and Output Vital Signs (last 24 hours): Temp Pulse Resp BP Pulse Ox 97.8 F 90 20 124/71 96 02/11/18 23:15 02/11/18 23:15 02/11/18 23:15 02/11/18 23:15 02/12/18 05:15 - Medications Medications: Current Medications Acetaminophen (Tylenol 325mg Tab) 650 mg PO Q6 PRN PRN Reason: Pain, Mild (1-3) Albuterol/Ipratropium (Duoneb 3 Mg/0.5 Mg (3 Ml) Ud) 3 ml INH RQ4 [facility] Last Admin: 02/12/18 04:49 Dose: Not Given Enoxaparin Sodium (Lovenox) 30 mg SC DAILY [facility] Last Admin: 02/11/18 10:33 Dose: 30 mg Guaifenesin (Mucinex La) 600 mg PO BID [facility] Last Admin: 02/11/18 17:44 Dose: 600 mg Moxifloxacin HCl (Avelox) 400 mg PO Q24H [facility] Last Admin: 02/11/18 20:40 Dose: 400 mg - Labs Labs: 02/11/18 07:38 02/11/18 07:38 - Additional Findings Additional findings: - Constitutional Appears: Non-toxic, No Acute Distress - Head Exam Head Exam: ATRAUMATIC - Eye Exam Eye Exam: EOMI - ENT Exam ENT Exam: Mucous Membranes Moist - Respiratory Exam Respiratory Exam: decreased breath sounds b/l. absent: Accessory Muscle Use, Rales, Rhonchi - Cardiovascular Exam Cardiovascular Exam: REGULAR RHYTHM, +S1, +S2. absent: Diastolic murmur, Gallop , Rubs, Systolic Murmur - GI/Abdominal Exam GI & Abdominal Exam: Normal Bowel Sounds. absent: Distended, Firm, Guarding, Rigid, Soft, Tenderness - Extremities Exam Extremities exam: Negative for: pedal edema, tenderness - Neurological Exam Neurological exam: Alert, Oriented x3 - Psychiatric Exam Psychiatric exam: Normal Affect, Normal Mood - Skin Skin Exam: Dry, Intact, Normal Color, Warm Assessment and Plan - Assessment and Plan (Free Text) Assessment: Bronchitis vs. PNA -Patient received Zithromax and Avelox in the ED - Will continue Avelox 400 mg po q24H - Rapid flu negative - F/u Sputum culture - Procalc <.05 Meds: - Tylenol prn for fevers - Mucinex BID for congestion - Duoneb prn Pulmonary fibrosis - Will continue to monitor. - Will recommend O/P pulm follow up - CT lung: Right lower lobe linear scar/ atelectasis. Left lower lobe calcified granuloma. No evidence of pulmonary fibrosis. No acute infiltrate. Prophylaxis - SCDs - Lovenox SC Case discussed with attending, Dr. Avalos.
[2018-02-12 08:05] LABS: BASO % 0.4 % (0.0-2.0); EOS # 0.1 K/uL (0.0-0.7); EOS % 1.7 % (0.0-4.0); HEMOGLOBIN 12.6 g/dL (11.0-16.0); LYMPH # 1.2 K/uL (1.0-4.3); LYMPH % 30.3 % (20.0-40.0); MEAN CELL VOLUME 89.7 fL (81.0-99.0); MEAN CORPUSCULAR HEMOGLOBIN 29.8 pg (27.0-31.0); MEAN CORPUSCULAR HGB CONC 33.3 g/dL (33.0-37.0); MEAN PLATELET VOLUME 10.1 fL (7.2-11.7); MONO # 0.5 K/uL (0.0-0.8); NEUT # 2.2 K/uL (1.8-7.0); NEUT % 55.6 % (50.0-75.0); NRBC % 0.1 % (0.0-2.0); RBC 4.23 Mil/uL (3.80-5.20); RED CELL DISTRIBUTION WIDTH 13.6 % (11.5-14.5)
[2018-02-12 08:14] LABS: ALB/GLOB RATIO 1.1 (1.0-2.1); ALBUMIN 3.7 g/dL (3.5-5.0); ALT/SGPT 20 U/L (9-52); AST/SGOT 17 U/L (14-36); BLOOD UREA NITROGEN 15 mg/dL (7-17); CALCIUM 8.6 mg/dl (8.6-10.4); GFR AFRICAN-AMERICAN > 60; GFR NON-AFRICAN AMERICAN > 60
[2018-02-12 08:16] VITALS: BP 139/81; TEMP 97; O2SAT 100
[2018-02-12 08:29] VITALS: PULSE 64
[2018-02-12] MEDS: Enoxaparin 30 mg Syringe SC SCH (09:32)
[2018-02-12] MEDS: guaiFENesin 600 mg ER Tab PO SCH (09:32)
--- NOTE | 2018-02-12 14:38 | CP.PCM.DIS ---
Provider - Provider Date of Admission: 02/10/18 18:16 Attending physician: Linda Capellan MD Primary care physician: Dr. Gupta Time Spent in preparation of Discharge (in minutes): 40 Diagnosis - Discharge Diagnosis (1) Bronchitis Status: Resolved Hospital Course - Lab Results Lab Results: Micro Results 02/10/18 22:30 Blood Blood Culture - Preliminary NO GROWTH AFTER 24 HOURS 02/10/18 22:30 Blood Blood Culture - Preliminary NO GROWTH AFTER 24 HOURS Most Recent Lab Values WBC 4.0 K/uL (4.8-10.8) L 02/12/18 07:50 RBC 4.23 Mil/uL (3.80-5.20) 02/12/18 07:50 Hgb 12.6 g/dL (11.0-16.0) 02/12/18 07:50 Hct 38.0 % (34.0-47.0) 02/12/18 07:50 MCV 89.7 fL (81.0-99.0) 02/12/18 07:50 MCH 29.8 pg (27.0-31.0) 02/12/18 07:50 MCHC 33.3 g/dL (33.0-37.0) 02/12/18 07:50 RDW 13.6 % (11.5-14.5) 02/12/18 07:50 Plt Count 174 K/uL (130-400) 02/12/18 07:50 MPV 10.1 fL (7.2-11.7) 02/12/18 07:50 Neut % (Auto) 55.6 % (50.0-75.0) 02/12/18 07:50 Lymph % (Auto) 30.3 % (20.0-40.0) 02/12/18 07:50 [place] % (Auto) 12.0 % (0.0-10.0) H 02/12/18 07:50 Eos % (Auto) 1.7 % (0.0-4.0) 02/12/18 07:50 Baso % (Auto) 0.4 % (0.0-2.0) 02/12/18 07:50 Neut # (Auto) 2.2 K/uL (1.8-7.0) 02/12/18 07:50 Lymph # (Auto) 1.2 K/uL (1.0-4.3) 02/12/18 07:50 [place] # (Auto) 0.5 K/uL (0.0-0.8) 02/12/18 07:50 Eos # (Auto) 0.1 K/uL (0.0-0.7) 02/12/18 07:50 Baso # (Auto) 0.0 K/uL (0.0-0.2) 02/12/18 07:50 Sodium 145 mmol/L (132-148) 02/12/18 07:50 Potassium 4.2 mmol/L (3.6-5.2) 02/12/18 07:50 Chloride 105 mmol/L (98-107) 02/12/18 07:50 Carbon Dioxide 27 mmol/L (22-30) 02/12/18 07:50 Anion Gap 17 (10-20) 02/12/18 07:50 BUN 15 mg/dL (7-17) 02/12/18 07:50 Creatinine 0.8 mg/dL (0.7-1.2) 02/12/18 07:50 Est GFR ( Amer) > 60 02/12/18 07:50 Est GFR (Non-Af Amer) > 60 02/12/18 07:50 Random Glucose 87 mg/dL (65-105) 02/12/18 07:50 Calcium 8.6 mg/dl (8.6-10.4) 02/12/18 07:50 Phosphorus 3.6 mg/dL (2.5-4.5) 02/12/18 07:50 Magnesium 1.9 mg/dL (1.6-2.3) 02/12/18 07:50 Total Bilirubin 0.5 mg/dL (0.2-1.3) 02/12/18 07:50 AST 17 U/L (14-36) 02/12/18 07:50 ALT 20 U/L (9-52) 02/12/18 07:50 Alkaline Phosphatase 46 U/L (38-126) 02/12/18 07:50 Total Creatine Kinase 136 U/L (30-135) H 02/10/18 17:34 CK-MB (Mass) 1.81 ng/mL (0.0-3.38) 02/10/18 17:34 Troponin I < 0.0120 ng/mL (0.00-0.120) 02/10/18 17:34 NT-Pro-B Natriuret Pep 193 pg/mL (0-900) 02/10/18 17:34 Total Protein 7.2 g/dL (6.3-8.3) 02/12/18 07:50 Albumin 3.7 g/dL (3.5-5.0) 02/12/18 07:50 Globulin 3.5 gm/dL (2.2-3.9) 02/12/18 07:50 Albumin/Globulin Ratio 1.1 (1.0-2.1) 02/12/18 07:50 Procalcitonin < 0.05 NG/ML (0.19-0.49) L 02/11/18 07:38 Influenza Typ A,B (EIA) Negative for flu a/b (NEGATIVE) 02/10/18 19:00 - Hospital Course Hospital Course: 87 year old female with past medical history of pulmonary fibrosis of unknown origin presented to hospital with 1 month of productive cough. Patient was admitted to floor for bronchitis vs suspicious pneumonia. CXR was normal showing no evidence of active disease. Chest CT was ordered which showed no evidence of pulmonary fibrosis. Incidental findings were a chronic left lower lobe calcified granuloma and a small hiatal hernia. Patient was treated with one dose of Zithromax 500 mg as well as moxifloxacin 400mg po q24, mucinex 600 mg po BID, duoneb 3ml q4 RICHARD, and lovenox 30 mg SC daily. Upon discharge, patient's breathing had dramatically improved. Her lungs were clear and she had gained some of her energy back. Patient did state that her hands were slightly tremulous which was noted on initial presentation. This could also have been a side effect of the duoneb treatments. Patient was discharged with an albuterol inhaler to use 3-4 times/day for the next week and 4 more days of avelox to for a treatment total of 7 days. Patient was advised to follow up in the clinic for management of chronic conditions. If condition worsens patient was advised to seek nearest emergency room. This is a summary of the patient's hospital course, please see chart for full details. Discharge Exam - Head Exam Head Exam: ATRAUMATIC, NORMAL INSPECTION, NORMOCEPHALIC - Eye Exam Eye Exam: EOMI, Normal appearance - ENT Exam ENT Exam: Mucous Membranes Moist - Respiratory Exam Respiratory Exam: Decreased Breath Sounds, Clear to PA & Lateral, NORMAL BREATHING PATTERN - Cardiovascular Exam Cardiovascular Exam: REGULAR RHYTHM, RRR, +S1, +S2 - GI/Abdominal Exam GI & Abdominal Exam: Normal Bowel Sounds, Soft. absent: Tenderness - Extremities Exam Extremities exam: normal inspection - Neurological Exam Neurological exam: Alert, Oriented x3 - Psychiatric Exam Psychiatric exam: Normal Affect, Normal Mood - Skin Skin Exam: Dry, Intact, Normal Color, Warm Discharge Plan - Discharge Medications Prescriptions: Albuterol HFA [Ventolin HFA 90 mcg/actuation (8 g)] 1 puff IH Q4H PRN #1 inhaler PRN Reason: Shortness Of Breath Moxifloxacin [Avelox] 400 mg PO Q24H #4 tab - Follow Up Plan Condition: STABLE Disposition: HOME/ ROUTINE Instructions: Heart Healthy Diet, Acute Bronchitis, Adult (DC), Moxifloxacin ( Systemic), Pneumonia, Adult (DC), Chest Pain (DC), Albuterol Additional Instructions: Patient stable for discharge as per Dr. Avalos. Patient to take Moxifloxicin 400mg by mouth daily for 4 more days. Patient to albuterol inhaler 3-4 times per day as needed for shortness of breath. Patient to please follow up with the [facility] within one week. Patient to return to ED if symptoms return/ worsen. Referrals: [facility] [Provider Group]
== END 2018-02-12 14:39 | disposition home or self-care (01) ==
LOC: C.ER 15:23 → C.9E 18:16 → C.6T 19:52
PROVIDERS: ADMIT Internal Medicine; ATTEND Internal Medicine
DX: J40 Bronchitis, not specified as acute or chronic (principal); I10 Essential (primary) hypertension; Z88.0 Allergy status to penicillin
CPT/HCPCS: 36415; 71046; 71250; 80053; 82550; 82553; 83735; 83880; 84100; 84145; 84484; 85025; 87040; 87070; 87804; 93005; 94640; 96360; 99284; G0378; J0456; J1650

== ENCOUNTER 2018-04-06 10:54 | Emergency (ER) | payer OTHER ==
[2018-04-06 10:55] VITALS: BMI 29.5
[2018-04-06 11:01] VITALS: BP 138/81; PULSE 76; RESP 18; TEMP 98.5; O2SAT 96
--- NOTE | 2018-04-06 11:38 | C.PDOC ---
History Of Present Illness 87 y/o female presents to the ED for rash to the anterior right thigh. She reports it began 3-4 days ago. Patient complains of extreme itchiness in a small circular appearance. She states she continued to itch the area causing it to blow up to about a 6x6 cm eek. Denies any fever, chills, nausea, vomiting , and has no other medical complaints. PMD:none provided Time Seen by Provider: 04/06/18 11:09 Chief Complaint (Nursing): Abnormal Skin Integrity History Per: Patient History/Exam Limitations: no limitations Onset/Duration Of Symptoms: Days Current Symptoms Are (Timing): Still Present Location Of Injury: Right: Thigh, Anterior: Thigh Quality Of Symptoms: Itching Recent travel outside of the [place]: No Past Medical History Reviewed: Historical Data, Nursing Documentation, Vital Signs Vital Signs: Last Vital Signs Temp 98.5 F 04/06/18 10:56 Pulse 76 04/06/18 10:56 Resp 18 04/06/18 10:56 BP 138/81 04/06/18 10:56 Pulse Ox 96 04/06/18 11:41 - Medical History PMH: HTN Denies: Chronic Kidney Disease Surgical History: Cholecystectomy Family History: States: Unknown Family Hx - Social History Hx Tobacco Use: No Hx Alcohol Use: No Hx Substance Use: No - Immunization History Hx Tetanus Toxoid Vaccination: No Hx Influenza Vaccination: Yes (2017) Hx Pneumococcal Vaccination: No Review Of Systems Except As Marked, All Systems Reviewed And Found Negative. Constitutional: Negative for: Fever, Chills Gastrointestinal: Negative for: Nausea, Vomiting Skin: Positive for: Rash (anterior right thigh) Physical Exam - Physical Exam Appears: Non-toxic, No Acute Distress Skin: No Normal Color (large ring darkened interior which is pleuritic with sattelite lesions around that are consistent with a fungal infection) Head: Atraumatic Eye(s): bilateral: Normal Inspection, PERRL, EOMI Neurological/Psych: Oriented x3 ED Course And Treatment O2 Sat by Pulse Oximetry: 96 (RA) Pulse Ox Interpretation: Normal Medical Decision Making Medical Decision Making: Time: 10:56 Impression: Ring worm versus cellulitis Initial Plan: * Evaluation Patient was treated with an anti-fungal cream. Scribe Attestation: Documented by Pravin Ramirez acting as a scribe Jose Juan Moreno MD. MD Godinezibchery Attestation: All medical record entries made by the Scribe were at my direction and personally dictated by me. I have reviewed the chart and agree that the record accurately reflects my personal performance of the history, physical exam, medical decision making, and the department course for this patient. I have also personally directed, reviewed, and agree with the discharge instructions and disposition. Disposition Counseled Patient/Family Regarding: Diagnosis, Need For Followup, Rx Given - Disposition Disposition: HOME/ ROUTINE Disposition Time: 11:38 Condition: STABLE Prescriptions: Clotrimazole [Athlete's Foot] 1 gm TP BID #35.4 gm Instructions: Ringworm Forms: [employer] ([place]ish) - POA Present On Arrival: None - Clinical Impression Clinical Impression: Ringworm
== END 2018-04-06 11:46 | disposition home or self-care (01) ==
LOC: C.ER 10:54
DX: B35.9 Dermatophytosis, unspecified (principal); I10 Essential (primary) hypertension

== ENCOUNTER 2018-08-06 18:12 | Emergency (ER) | payer OTHER ==
[2018-08-06 18:12] VITALS: BMI 29.5
--- NOTE | 2018-08-06 19:11 | C.PDOC ---
History Of Present Illness The patient reports that a plate fell onto her left lower leg 1 week ago. The patient reports that she still has pain and swelling prompting visit. The patient is able to ambulate but with pain. Denies other injuries, numbness, weakness. Time Seen by Provider: 08/06/18 19:04 Chief Complaint (Nursing): Lower Extremity Problem/Injury History Per: Patient, Family (Daughter) History/Exam Limitations: no limitations Onset/Duration Of Symptoms: Persistent Current Symptoms Are (Timing): Still Present Severity: Mild Pain Scale Rating Of: 3 Recent travel outside of the [place]: No Past Medical History Reviewed: Historical Data, Nursing Documentation, Vital Signs Vital Signs: Last Vital Signs Temp 97.6 F 08/06/18 18:27 Pulse 71 08/06/18 18:27 Resp 16 08/06/18 18:27 BP 156/78 H 08/06/18 18:27 Pulse Ox 98 08/06/18 18:27 - Medical History PMH: HTN Denies: Chronic Kidney Disease Surgical History: Cholecystectomy Family History: States: Unknown Family Hx - Social History Hx Tobacco Use: No Hx Alcohol Use: No Hx Substance Use: No - Immunization History Hx Tetanus Toxoid Vaccination: No Hx Influenza Vaccination: Yes (2017) Hx Pneumococcal Vaccination: No Review Of Systems Constitutional: Negative for: Fever, Weakness Cardiovascular: Negative for: Chest Pain, Palpitations Respiratory: Negative for: Cough Gastrointestinal: Negative for: Vomiting, Abdominal Pain Musculoskeletal: Positive for: Leg Pain. Negative for: Neck Pain Skin: Negative for: Rash, Lesions Neurological: Negative for: Weakness, Numbness Physical Exam - Physical Exam Appears: Non-toxic, No Acute Distress Skin: Normal Color, Warm, No Rash Head: Atraumatic, Normacephalic Eye(s): bilateral: Normal Inspection Oral Mucosa: Moist Neck: Normal ROM, Supple Chest: Symmetrical Respiratory: No Accessory Muscle Use Extremity: Normal ROM, Capillary Refill (< 2 sec), No Deformity, Other ((+) Mild swelling and tenderness to the anterior left lower leg, with ecchymosis. Mild swelling to the dorsal foot. ) Extremity: Bilateral: Normal Color And Temperature Pulses: Left Dorsalis Pedis: Normal, Right Dorsalis Pedis: Normal Neurological/Psych: Oriented x3, Normal Motor, Normal Sensation Gait: Steady ED Course And Treatment O2 Sat by Pulse Oximetry: 98 (on Ra) Pulse Ox Interpretation: Normal Progress Note: Xrays were performed and are negative for fracture or dislocation. Jorge wrap was applied by machines technician and checked. On re-exam, the patient is ambulatory with ease and steady gait. Disposition - Disposition Referrals: [facility] [Outside] [facility] [Outside] Disposition: HOME/ ROUTINE Disposition Time: 20:11 Condition: STABLE Additional Instructions: Follow up with the Class C Driver as needed. return if worsened. Instructions: Contusion (DC) Forms: [employer] (Sinhala) Print Language: KAZAKH - Clinical Impression Clinical Impression: Contusion of leg, left
[2018-08-06 20:16] VITALS: BP 158/73; PULSE 67; RESP 14; TEMP 97.7; O2SAT 95
--- NOTE | 2018-08-07 09:00 | RAD ---
Date of service: 08/06/2018 PROCEDURE: Radiographs of the left tibia and fibula. HISTORY: injury to the mid tib/fib COMPARISON: None available. TECHNIQUE: Frontal and lateral views obtained. FINDINGS: BONES: No fracture or destructive lesion. JOINT SPACES: Unremarkable. OTHER FINDINGS: None. IMPRESSION: Unremarkable radiographs of the left tibia and fibula.
--- NOTE | 2018-08-07 09:02 | RAD ---
Date of service: 08/06/2018 PROCEDURE: HISTORY: foot injury, r/o fracture COMPARISON: None TECHNIQUE: Three views FINDINGS: . Hammertoe orientations given available views. First metatarsal-phalangeal joint arthrosis present. No fracture or dislocation appreciated. IMPRESSION: No fracture or dislocation Other findings as above.
== END 2018-08-06 20:19 | disposition home or self-care (01) ==
LOC: C.ER 18:12
DX: S80.12XA Contusion of left lower leg, initial encounter (principal); W22.8XXA Striking against or struck by other objects, initial encounter

== ENCOUNTER 2018-10-18 15:30 | Emergency (ER) | payer OTHER ==
[2018-10-18 15:36] VITALS: BMI 25.1
[2018-10-18 15:46] VITALS: TEMP 98.5
[2018-10-18] MEDS ORDERED: Oxycodone/Acetaminophen 5/325 mg Tab PO STA (16:15)
[2018-10-18] MEDS ORDERED: Oxycodone/Acetaminophen 5/325 mg Tab ONE (16:21)
--- NOTE | 2018-10-18 16:21 | C.PDOC ---
History Of Present Illness 88 y/o female presents to ED complaining of chest pain since last Saturday. Patient states her granddaughter came over and wanted her to dance with her. Granddaughter grabbed her around the chest and lifted her up and since then, she has had chest pain along her costal margins bilaterally, left worse than right. If resting, patient isnt uncomfortable but the pain worsens with movement. She denies coughing, SOB, dizziness, or lightheadedness. Patient has not taken anything for the pain. Time Seen by Provider: 10/18/18 15:53 Chief Complaint (Nursing): Abdominal Pain History Per: Patient History/Exam Limitations: no limitations Onset/Duration Of Symptoms: Days Current Symptoms Are (Timing): Still Present Past Medical History Reviewed: Historical Data, Nursing Documentation, Vital Signs Vital Signs: Last Vital Signs Temp 98.5 F 10/18/18 15:36 Pulse 73 10/18/18 15:36 Resp 16 10/18/18 15:36 BP 129/75 10/18/18 15:36 Pulse Ox 96 10/18/18 15:36 - Medical History PMH: HTN Denies: Chronic Kidney Disease Surgical History: Cholecystectomy Family History: States: No Known Family Hx - Social History Hx Tobacco Use: No Hx Alcohol Use: No Hx Substance Use: No - Immunization History Hx Tetanus Toxoid Vaccination: No Hx Influenza Vaccination: Yes (Jul 2018) Hx Pneumococcal Vaccination: Yes (2017) Review Of Systems Cardiovascular: Positive for: Chest Pain (along costal margins bilaterally, L worse than R). Negative for: Light Headedness Respiratory: Negative for: Cough, Shortness of Breath Neurological: Negative for: Dizziness Physical Exam - Physical Exam Appears: Non-toxic, No Acute Distress Skin: Warm, Dry Head: Atraumatic, Normacephalic Eye(s): bilateral: Normal Inspection Oral Mucosa: Moist Neck: Supple Chest: No Ecchymosis Cardiovascular: Rhythm Regular, No Murmur Respiratory: Normal Breath Sounds, No Rales, No Rhonchi, No Wheezing Gastrointestinal/Abdominal: Soft, Tenderness (tenderness to palpation on left and right upper quadrants) Extremity: Tenderness (in lower anterior and lateral ribs on left and mildly on the right) ED Course And Treatment O2 Sat by Pulse Oximetry: 96 (RA) Pulse Ox Interpretation: Normal - Other Rad Bilateral ribs and CXR X-Ray: Interpreted by Me Interpretation: No evidence of fracture,effusion or pneumothorax Progress Note: Patient treated with Percocet for pain. Reevaluation Time: 17:15 Reassessment Condition: Improved Medical Decision Making Medical Decision Making: Plan: --EKG --Ribs X-Ray --Percocet Disposition Counseled Patient/Family Regarding: Studies Performed, Diagnosis, Need For Followup, Rx Given - Disposition Referrals: Abbey Gupta MD [Staff Provider] - Disposition: HOME/ ROUTINE Disposition Time: 17:18 Condition: STABLE Additional Instructions: Give Tylenol 2 tablets every 4 hours during the day for pain if needed. Prescriptions: Tramadol HCl [Ultram] 50 mg PO QID PRN #14 tablet PRN Reason: Pain, Severe (8-10) Instructions: Bruised Rib Forms: [employer] (Mexican) Print Language: [place] CITIZEN - Clinical Impression Clinical Impression: Bruised ribs - Scribe Statement The provider has reviewed the documentation as recorded by the Yvette Gray Provider Attestation: All medical record entries made by the Yvette were at my direction and personally dictated by me. I have reviewed the chart and agree that the record accurately reflects my personal performance of the history, physical exam, medical decision making, and the department course for this patient. I have also personally directed, reviewed, and agree with the discharge instructions and disposition.
[2018-10-18 17:16] VITALS: BP 129/73; PULSE 68; RESP 18
[2018-10-18 17:18] VITALS: O2SAT 96
--- NOTE | 2018-10-18 17:48 | RAD ---
Date of service: 10/18/2018 PROCEDURE: Radiographs of the chest and bilateral ribs HISTORY: chest wall pain COMPARISON: Chest radiographs 10/13/2018. TECHNIQUE: Frontal radiograph of the chest and multiple oblique radiographs of the bilateral ribs were obtained. FINDINGS: RIGHT RIBS: No fracture or focal lesion visualized. LEFT RIBS: No fracture or focal lesion visualized. LUNGS: Calcified granuloma again seen the inferior left lung zone. Pulmonary volumes appear diminished. Trace left pleural effusion in question. No pneumothorax bilaterally. PLEURA: As above. CARDIOVASCULAR: Normal cardiac size. No pulmonary vascular congestion. Calcific atherosclerotic changes are seen related to the thoracic aorta. OTHER FINDINGS: None. IMPRESSION: Unremarkable radiographs of the chest and bilateral ribs. No rib fracture.
--- NOTE | 2018-10-20 17:39 | CARD ---
APPROVED REPORT Date of service: 10/18/2018 EKG Measurement Heart [id number] <Conclusion> Normal sinus rhythm Normal ECG
== END 2018-10-18 17:34 | disposition home or self-care (01) ==
LOC: C.ER 15:30
DX: S20.219A Contusion of unspecified front wall of thorax, initial encounter (principal); X58.XXXA Exposure to other specified factors, initial encounter; Y92.9 Unspecified place or not applicable; I10 Essential (primary) hypertension

== ENCOUNTER 2019-01-18 16:45 | Emergency (ER) | payer OTHER ==
[2019-01-18 16:45] VITALS: BMI 25.1
--- NOTE | 2019-01-18 17:28 | RAD ---
Date of service: 01/18/2019 PROCEDURE: CHEST RADIOGRAPH, 1 VIEW HISTORY: SOB, cough COMPARISON: 10/18/2018. FINDINGS: LUNGS: Clear.Incidental finding(s): 3 mm left lower lobe calcified granuloma. PLEURA: No pneumothorax or pleural fluid seen. CARDIOVASCULAR: Atherosclerotic calcifications identified primarily aortic arch. Normal. OSSEOUS STRUCTURES: No significant abnormalities. VISUALIZED UPPER ABDOMEN: Normal. OTHER FINDINGS: None. IMPRESSION: No active disease. No acute/significant interval changes.
[2019-01-18 17:30] VITALS: O2SAT 98
[2019-01-18 17:47] LABS: BASO % 0.6 % (0.0-2.0); EOS # 0.1 K/uL (0.0-0.7); EOS % 2.8 % (0.0-4.0); HEMOGLOBIN 12.9 g/dL (11.0-16.0); LYMPH # 1.4 K/uL (1.0-4.3); LYMPH % 39.5 % (20.0-40.0); MEAN CELL VOLUME 91.7 fL (81.0-99.0); MEAN CORPUSCULAR HEMOGLOBIN 29.7 pg (27.0-31.0); MEAN CORPUSCULAR HGB CONC 32.4 g/dL (33.0-37.0); MEAN PLATELET VOLUME 9.5 fL (7.2-11.7); MONO # 0.5 K/uL (0.0-0.8); MONO % 13.9 % (0.0-10.0); NEUT # 1.5 K/uL (1.8-7.0); NEUT % 43.2 % (50.0-75.0); RBC 4.35 Mil/uL (3.80-5.20); RED CELL DISTRIBUTION WIDTH 13.8 % (11.5-14.5); WHITE BLOOD COUNT 3.5 K/uL (4.8-10.8)
--- NOTE | 2019-01-18 17:56 | C.PDOC ---
History Of Present Illness 87 y/o female comes in complaining of a 4 day history of persistent coughing, which she describes as dry, and is associated with mild nasal congestion and SOB. Patient denies chest pain, hemoptysis, fever, or chills. Denies any recent travel or sick contacts. Time Seen by Provider: 01/18/19 17:02 Chief Complaint (Nursing): Cough, Cold, Congestion History Per: Patient History/Exam Limitations: no limitations Onset/Duration Of Symptoms: Days Current Symptoms Are (Timing): Still Present Past Medical History Reviewed: Historical Data, Nursing Documentation, Vital Signs Vital Signs: Last Vital Signs Temp 99.1 F 01/18/19 16:57 Pulse 68 01/18/19 17:29 Resp 17 01/18/19 17:29 BP 146/67 01/18/19 17:29 Pulse Ox 98 01/18/19 17:29 - Medical History PMH: HTN Denies: Chronic Kidney Disease Surgical History: Cholecystectomy Family History: States: No Known Family Hx - Social History Hx Tobacco Use: No Hx Alcohol Use: No Hx Substance Use: No - Immunization History Hx Tetanus Toxoid Vaccination: No Hx Influenza Vaccination: Yes (Jul 2018) Hx Pneumococcal Vaccination: Yes (2017) Review Of Systems Except As Marked, All Systems Reviewed And Found Negative. Constitutional: Negative for: Fever, Chills ENT: Positive for: Nose Congestion Cardiovascular: Negative for: Chest Pain Respiratory: Positive for: Cough (dry), Shortness of Breath. Negative for: Hemoptysis Physical Exam - Physical Exam Appears: Well, Non-toxic, No Acute Distress Skin: Warm, Dry, No Rash Head: Atraumatic, Normacephalic Eye(s): bilateral: Normal Inspection, PERRL, EOMI Ear(s): Bilateral: Normal Oral Mucosa: Moist Throat: Normal, No Erythema, No Exudate, Other (uvula midline) Neck: Normal ROM, Supple Chest: Symmetrical, No Tenderness Cardiovascular: Rhythm Regular, No Friction Rub, No Murmur Respiratory: Normal Breath Sounds, No Rales, No Rhonchi, No Wheezing Gastrointestinal/Abdominal: Soft, No Tenderness Back: Normal Inspection, No CVA Tenderness Extremity: Normal ROM, No Pedal Edema, No Swelling Extremity: Bilateral: Atraumatic, Normal ROM Neurological/Psych: Oriented x3, Normal Speech, Normal Cognition, Normal Motor Gait: Steady ED Course And Treatment - Laboratory Results Result Diagrams: 01/18/19 17:43 01/18/19 17:43 O2 Sat by Pulse Oximetry: 98 (RA) Pulse Ox Interpretation: Normal - Other Rad CXR X-Ray: Read By Radiologist Interpretation: FINDINGS: LUNGS: Clear.Incidental finding(s): 3 mm left lower lobe calcified granuloma. PLEURA: No pneumothorax or pleural fluid seen. CARDIOVASCULAR: Atherosclerotic calcifications identified primarily aortic arch. Normal. OSSEOUS STRUCTURES: No significant abnormalities. VISUALIZED UPPER ABDOMEN: Normal. OTHER FINDINGS: None. IMPRESSION: No active disease. No acute/significant interval changes. Medical Decision Making Medical Decision Making: Plan: --Labs --Chest XR Labs and CXR discussed with the patient. Possible infiltrate will treat with zithromax. Disposition - Disposition Referrals: [facility] at [facility] [Outside] Disposition: HOME/ ROUTINE Disposition Time: 18:10 Condition: GOOD Additional Instructions: follow up with the medical doctor within 1-2 days. Return if worsened. Prescriptions: Azithromycin [Zithromax] 250 mg PO DAILY #4 tab Benzonatate 200 mg PO TID PRN #30 capsule PRN Reason: Cough predniSONE [Prednisone] 20 mg PO BID #10 tab Instructions: Acute Bronchitis Forms: [employer] (Nepali) Print Language: SCOTTISH - Clinical Impression Clinical Impression: Bronchitis - PA / [employer]PARTMENT / Resident Statement MD/DO has reviewed & agrees with the documentation as recorded. - Scribe Statement The provider has reviewed the documentation as recorded by the Scribe Elizabeth Gray All medical record entries made by the Scribe were at my direction and personally dictated by me. I have reviewed the chart and agree that the record accurately reflects my personal performance of the history, physical exam, medical decision making, and the department course for this patient. I have also personally directed, reviewed, and agree with the discharge instructions and disposition.
[2019-01-18 17:59] LABS: ALB/GLOB RATIO 1.3 (1.0-2.1); ALT/SGPT 15 U/L (9-52); AST/SGOT 21 U/L (14-36); BLOOD UREA NITROGEN 21 mg/dL (7-17); CALCIUM 9.2 mg/dl (8.6-10.4); GFR NON-AFRICAN AMERICAN > 60
[2019-01-18 18:09] LABS: B-TYPE NATRIURETIC PEPTIDE 318 pg/mL (0-900)
[2019-01-18 18:25] VITALS: BP 151/67; PULSE 67; RESP 16
[2019-01-18 18:40] VITALS: TEMP 97.6
== END 2019-01-18 18:40 | disposition home or self-care (01) ==
LOC: C.ER 16:45 → EDBD 16:45 → C.ER 18:40
DX: J40 Bronchitis, not specified as acute or chronic (principal)